=== PATIENT | male | born 1975 | race Caucasian/White ===

== ENCOUNTER 2019-12-22 15:29 | Inpatient (IN) | payer BC ==
[~2019-12-22] VITALS: Ht 188 cm; Wt 98.0 kg
[2019-12-22] MEDS ORDERED: ACETAMINOPHEN325 MG PO (18:29)
[2019-12-22] MEDS ORDERED: LOVENOX60 MG/0.6 SC (18:31)
[2019-12-22] MEDS ORDERED: LIDODERM 5 %1 PATCH TRANSDERM (18:32)
[2019-12-22] MEDS ORDERED: NEURONTIN600 MG PO (18:32)
[2019-12-22] MEDS ORDERED: MELATONIN 3 MG1 TAB PO (18:33)
[2019-12-22] MEDS ORDERED: METHOCARBAMOL500 MG PO (18:35)
[2019-12-22] MEDS ORDERED: CELEXA10 MG PO (18:37)
[2019-12-22] MEDS ORDERED: OXYCODONE HCL5 M1 PO (18:37)
[2019-12-22] MEDS ORDERED: LAMICTAL100 MG PO (18:38)
[2019-12-22 18:51] VITALS: BP 138/88; BMI 27.8
[2019-12-22 21:10] VITALS: BP 138/88
--- NOTE | 2019-12-22 21:50 | NUR ---
PRN PAIN MEDICATION GIVEN FOR 9/10 PAIN LEVEL. PT TOLERATED WELL. WILL CONTINUE TO MONITOR
--- NOTE | 2019-12-22 22:00 | NUR ---
REMOVED RIGHT HIP DRESSING, BLOOD SATURATED. CLEANSED SURGICAL SITE WITH WOUND CLEANSER, PATTED DRY WITH 4X4. COVERED WITH MEPILEX AG DRESSING AT TOP AND SMALL BORDER GAUZE DRESSING AT BOTTOM. COVERED DRAIN SITE WITH BORDER GAUZE DRESSING. DATE, TIME, AND INITALED. PT TOLERATED WELL.
--- NOTE | 2019-12-23 01:11 | NUR ---
I have reviewed this patient and I concur with the Shift Assessment completed by the Licensed Practical Nurse today this shift.
--- NOTE | 2019-12-23 02:36 | NUR ---
PT RESTING IN BED QUIETLY WITH EYES CLOSED EASILY AWAKEN WITH VOICE STIMULATION. PT HAS FAMILY AT BEDSIDE. NO SIGNS OF DISTRESS NOTED. RESPIRATIONS EVEN AND UNLABORED. CALL LIGHT AND OTHER PERSONAL ITEMS WITH IN REACH. WILL CONTINUE TO MONITOR
[2019-12-23 08:00] VITALS: BP 143/90
--- NOTE | 2019-12-23 08:00 | NUR ---
AWAKE AND ALERT RESTING IN BED, DENIES ANY NEEDS AT THIS TIME, C/L AND FLUIDS IN REACH.
--- NOTE | 2019-12-23 09:30 | NUR ---
ASSESSMENT COMPLETE, DENIES ANY NEEDS AT THIS TIME, C/L AND FLUIDS IN REACH.
--- NOTE | 2019-12-23 12:32 | NUR ---
RESTING IN BED, IN ROOM, DENIES ANY NEEDS AT THIS TIME, C/L AND FLUIDS IN REACH.
[2019-12-23 13:55] VITALS: Ht 188 cm; Wt 98.0 kg
--- NOTE | 2019-12-23 16:00 | NUR ---
RESTING IN BED WATCHING TV, AWAKE AND ORIENTED, DENIES ANY NEEDS AT THIS TIME, C/L AND FLUIDS IN REACH.
[2019-12-23 20:01] VITALS: BP 123/65
--- NOTE | 2019-12-23 20:15 | NUR ---
PT LYING IN BED AWAKE ALERT AND ORIENTED x4. NO SIGNS OF DISTRESS NOTED. RESPIRATIONS EVEN AND UNLABORED. DRESSING CHANGED TO RIGHT HIP. IS AT BED SIDE. PT COMPLAINS OF PAIN. EFE ADMINISTER PRN PAIN MEDICATION. CALL LIGHT AND OTHER PERSONAL ITEMS WITH IN REACH. PT ENCOURAGED TO CALL FOR HELP WHEN NEEDED. SIDERAILS x2. WILL CONTINUE TO MONITOR
--- NOTE | 2019-12-24 00:14 | NUR ---
I have reviewed this patient and I concur with the Shift Assessment completed by the Licensed Practical Nurse today this shift.
--- NOTE | 2019-12-24 03:22 | NUR ---
RESTING IN BED QUIETLY. NO SIGNS OF DISTRESS AT THIS TIME. PT HAS NO COMPLAINTS AT THIS TIME. CALL LIGHT AND OTHER PERSONAL ITEMS WITHIN REACH WILLCONTINUE TO MONITOR. BED ALARM ON ACTIVE
[2019-12-24 05:42] LABS: BASOPHILS 0.2 % (0-2); HEMATOCRIT 22.4 % (42.0-54.0); IMMATURE GRANULOCYTES 1.2 % (0-5); LYMPHOCYTES 15.8 % (15-50); MCH 29.6 pg (26.0-34.0); MCHC 32.1 g/dL (31.0-37.0); MCV 92.2 fL (80.0-100.0); MEAN PLATELET VOLUME 9.2 fL (7.4-10.4); NEUTROPHILS 70.8 % (40-80); PLATELET COUNT 317 10x3/uL (130-400); RBC 2.43 10x6/uL (4.20-6.10); RDW 16.1 % (11.5-14.5); WBC 9.7 10x3/uL (4.8-10.8)
[2019-12-24 05:44] LABS: HEMOGLOBIN 7.2 g/dL (13.5-17.5)
--- NOTE | 2019-12-24 05:45 | NUR ---
CECILE FROM LAB CALLED CRITICAL HGB 7.2, RESULTS READ BACK AND VERIFIED
[2019-12-24 05:59] LABS: CALC OSMOLALITY 270 mosm/kg (275-300); CALCIUM 7.9 mg/dL (8.5-10.1); CARBON DIOXIDE 24.8 mmol/L (21.0-32.0); CHLORIDE - SERUM 103 mmol/L (98-107); CREATININE - SERUM 0.7 mg/dL (0.6-1.3); GLUCOSE 93 mg/dL (74-106); POTASSIUM - SERUM 3.8 mmol/L (3.5-5.1); SODIUM 135 mmol/L (136-145); UREA NITROGEN 16 mg/dL (7-18); eGFR NON AFRICAN AMERICAN > 90 mL/min (90-120)
[2019-12-24 07:49] VITALS: BP 133/82
--- NOTE | 2019-12-24 08:45 | NUR ---
AWAKE AND ALERT LYING IN BED WATCHING TV, ASSESSMENT COMPLETE, DENIES ANY NEEDS AT THIS TIME, C/L AND FLUIDS IN REACH, IN ROOM.
--- NOTE | 2019-12-24 12:15 | NUR ---
PATIENT IN THERAPY, DENIES ANY NEEDS AT THIS TIME.
--- NOTE | 2019-12-24 13:42 | NUR ---
BLOOD INFUSION BEGAN AT 1323 VIA IV RT. WRIST, NO S/S OF DISTRESS, STAYED WITH PATIENT 15 MINUTES 1338, MONITORED VITAL SIGNS ALL WNL. IN ROOM WITH PT. C/L AND FLUIDS IN REACH. WILL CONTINUE TO MONITOR.
--- NOTE | 2019-12-24 15:27 | NUR ---
PATIENT ADMITTED TO REHAB FROM [facility]. PATIENT IS NEW TO UNIT AND WILL BE RA AT NEXT MEETING. DISCHARGE PLANS ARE UNCERTAIN AT THIS TIME. WILL CONTINUE TO FOLLOW WITH PATIENT.
--- NOTE | 2019-12-24 16:18 | NUR ---
AWAKE AND ALERT IN BED WATCHING TV WITH , DENIES ANY NEEDS AT THIS TIME, 2ND UNIT OF BLOOD TRANSFUSION BEING ADMINISTERED, NO S/S OF DISTRESS NOTED, C/L AND FLUIDS IN REACH.
--- NOTE | 2019-12-24 19:27 | NUR ---
AWAKE AND ALERT. RESTING IN BED. RESPIRATIONS UNLABORED. BRACE IN PLACE TO LEFT LOWER ARM. RIGHT WIRST SALINE LOCK INTACT. JUST FINISHED 2 UNITS OF PRBC AND TOLERATED WELL WITH NO SIGNS OF ADVERSE REACTION. CASTS IN PLACE TO BILATER LOWER EXTREMITIES. TOES BRUISED BUT WARM TO TOUCH AND CAN WIGGLE ON COMMAND. CAN ALSO MOVE LEFT THUMB ON COMMAND AND IT IS WAS WARM TO TOUCH. RIGHT HIP DRESSING IS INTACT BUT WITH NOTED DRAINAGE. I INFORMED PATIENT THAT I WOULD CHANGE DRESSING LATER TONIGHT. HE VOICED UNDERSTANDING. AT BEDSIDE.
[2019-12-24 20:00] VITALS: BP 134/83
--- NOTE | 2019-12-25 01:36 | NUR ---
SLEEPING WITH RESPIRATIONS UNLABORED. NO DISTRESS NOTED. CALL LIGHT IN REACH.
--- NOTE | 2019-12-25 02:59 | NUR ---
CONTINUES RESTING IN BED WITH EYES CLOSED AND RESPIRATIONS UNLABORED. NO DISTRESS NOTED.
--- NOTE | 2019-12-25 05:59 | NUR ---
QUIET HOURS. NO ACUTE CHANGES IN CONDITION THIS SHIFT. STATES HE SLEPT SOME. NO ACUTE DISTRESS NOTED.
--- NOTE | 2019-12-25 07:30 | NUR ---
SUPINE POSITION WITH EYES CLOSED. RESP EVEN AND UNLABORED WITH NO DISTRESS NOTED. SIDRAILS UP X 2, CALL LIGHT IN REACH AND BED IN LOW, LOCKED POSITION. NO APPARENT NEEDS AT PRESENT TIME.
[2019-12-25 09:46] LABS: BASOPHILS 0.2 % (0-2); EOSINOPHILS 0.8 % (0-7); LYMPHOCYTES 11.8 % (15-50); MCH 29.6 pg (26.0-34.0); MCHC 31.9 g/dL (31.0-37.0); MCV 92.7 fL (80.0-100.0); MEAN PLATELET VOLUME 9.1 fL (7.4-10.4); MONOCYTES 10.6 % (2-11); NEUTROPHILS 75.6 % (40-80); RDW 16.3 % (11.5-14.5); WBC 8.8 10x3/uL (4.8-10.8)
[2019-12-25 09:51] LABS: HEMATOCRIT 30.7 % (42.0-54.0); HEMOGLOBIN 9.8 g/dL (13.5-17.5); PLATELET COUNT 436 10x3/uL (130-400); RBC 3.31 10x6/uL (4.20-6.10)
--- NOTE | 2019-12-25 14:35 | NUR ---
I have reviewed this patient and I concur with the Shift Assessment completed by the Licensed Practical Nurse today this shift.
--- NOTE | 2019-12-25 19:35 | NUR ---
LYING IN BED WATCHING TV AND TALKING TO . ALERT AND ORIENTED X4. REPORTS PAIN IN FEET 2 ON PAIN SCALE. JUST RECEIVED OXYCODONE PRIOR TO SHIFT CHANGE. SOFT CASTS NOTED TO BLE. TOES WARM AND ABLE TO WIGGLE THEM. LT THUMB IN HOMEMADE SPLINT. REPORTS REG SPLINT CAUSES MORE PAIN. BRUISING NOTED TO LISA MIX. DRSG TO RT HIP IS C/D/I. ABRASIONS NOTED TO LT FOREARM. EGGCRATE NOTED UNDER BLE. SALINE LOCK NOTED TO RT WRIST. ENCOURAGED USE OF I.S. USES URINAL. BED ALARM ON FOR PT SAFETY. SR ELEVATED X2. CL IN REACH.
[2019-12-25 20:09] VITALS: BP 123/76
--- NOTE | 2019-12-25 22:14 | NUR ---
MEDICATED WITH OXYCODONE FOR C/O PAIN IN FEET. OFFERED BATH AND STATES HE WANTS TO WAIT UNTIL 0900 WHEN RETURNS. CL IN REACH.
--- NOTE | 2019-12-26 01:01 | NUR ---
RESTING QUIETLY WITH EYES CLOSED. RESP NONLABORED. NO DISTRESS. CL IN REACH. BED ALARM ON.
--- NOTE | 2019-12-26 02:57 | NUR ---
RESTING WITH EYES CLOSED. RESP EVEN AND NONLABORED. NO DISTRESS. CL IN REACH. BED ALARM ON.
--- NOTE | 2019-12-26 05:52 | NUR ---
HAS RESTED WELL TONIGHT. LYING IN BED WITH EYES CLOSED. RESP SHALLOW, NONLABORED. NO DISTRESS. CL IN REACH. BED ALARM ON.
--- NOTE | 2019-12-26 07:32 | NUR ---
A/A/OX4. REMOVED FROM BEDPAN HAD MOD AMT LIGHT BROWN LIQUID STOOL. STATES PAIN LEVEL IS AT 4 BUT DOES NOT WANT PAIN PILL YET. SIDERAILS UP X 2, CALL LIGHT IN REACH AND BED IN LOW LOCKED POSITION. DRESSING TO RIGHT HIP C/D/I.
[2019-12-26 08:15] VITALS: BP 135/79
--- NOTE | 2019-12-26 14:51 | NUR ---
RESTING QUIETLY IN BED WATCHING TV. DENIES ANY NEED FOR PAIN MED AT PRESENT TIME. NO REQUESTS VOICED
--- NOTE | 2019-12-26 15:00 | NUR ---
I have reviewed this patient and I concur with the Shift Assessment completed by the Licensed Practical Nurse today this shift.
--- NOTE | 2019-12-26 19:45 | NUR ---
LYING IN BED TALKING TO . ALERT AND ORIENTED X4. RESP EVEN AND NONLABORED. ENCOURAGED USE OF I.S. AND HE VERBALIZED UNDERSTANDING. DRSG NOTED TO RT HIP IS C/D/I. SOFT CASTS NOTED TO BLE. BILAT TOES ARE BRUISED. HAS BLOOD BLISTER ON TOP OF LT FOOT THAT DAY SHIFT NURSE REPORTED THAT HAD BEEN DRAINING. TOES ARE WARM TO TOUGH AND HE IS ABLE TO WIGGLE THEM. EDEMA NOTED TO BLE. ABRASIONS NOTED TO LT FOREARM. NOT WEARING BRACE ON LT HAND BUT HAS SPLINT ON LT THUMB. RATES PAIN IN LT FOOT 4. SALINE LOCK NOTED TO RT WRIST. NO DISTRESS. AT BEDSIDE. CL IN REACH. BED ALARM IN USE FOR PT SAFETY.
[2019-12-26 20:10] VITALS: BP 132/89
--- NOTE | 2019-12-26 22:06 | NUR ---
MEDICATED WITH OXYCODONE FOR C/O PAIN IN LT FOOT. CL IN REACH. AT BEDSIDE. BED ALARM IN USE.
--- NOTE | 2019-12-27 01:25 | NUR ---
RESTING QUIETLY WITH EYES CLOSED. RESP NONLABORED. NO DISTRESS. CL IN REACH. BED ALARM ON.
--- NOTE | 2019-12-27 04:11 | NUR ---
LYING IN BED USING CELL PHONE. DENIES NEEDS. URINAL EMPTIED. NO DISTRESS. CL IN REACH.
--- NOTE | 2019-12-27 05:33 | NUR ---
MEDICATED WITH OXYCODONE FOR C/O PAIN IN LT FOOT. CL IN REACH. NO DISTRESS.
[2019-12-27 07:20] LABS: BASOPHILS 0.3 % (0-2); EOSINOPHILS 1.5 % (0-7); HEMATOCRIT 29.8 % (42.0-54.0); HEMOGLOBIN 9.4 g/dL (13.5-17.5); IMMATURE GRANULOCYTES 0.9 % (0-5); LYMPHOCYTES 17.7 % (15-50); MCH 29.2 pg (26.0-34.0); MCHC 31.5 g/dL (31.0-37.0); MCV 92.5 fL (80.0-100.0); MEAN PLATELET VOLUME 8.6 fL (7.4-10.4); NEUTROPHILS 68.6 % (40-80); RBC 3.22 10x6/uL (4.20-6.10); RDW 15.9 % (11.5-14.5); WBC 7.4 10x3/uL (4.8-10.8)
[2019-12-27 07:21] LABS: PLATELET COUNT 612 10x3/uL (130-400)
[2019-12-27 07:37] LABS: CALC OSMOLALITY 272 mosm/kg (275-300); CALCIUM 8.5 mg/dL (8.5-10.1); CARBON DIOXIDE 25.8 mmol/L (21.0-32.0); CHLORIDE - SERUM 104 mmol/L (98-107); CREATININE - SERUM 0.6 mg/dL (0.6-1.3); GLUCOSE 87 mg/dL (74-106); POTASSIUM - SERUM 4.6 mmol/L (3.5-5.1); SODIUM 137 mmol/L (136-145); UREA NITROGEN 12 mg/dL (7-18); eGFR NON AFRICAN AMERICAN > 90 mL/min (90-120)
[2019-12-27 07:38] VITALS: BP 131/87
--- NOTE | 2019-12-27 08:30 | NUR ---
SITTING UP IN BED WATCHING TV, WITH AT BEDSIDE, V/S AND ASSESSMENT COMPLETE, DENIES ANY NEEDS AT THIS TIME, C/L AND FLUIDS IN REACH.
--- NOTE | 2019-12-27 12:03 | NUR ---
UP IN W/C, DENIES ANY NEEDS AT THIS TIME, C/L AND FLUIDS IN REACH.
--- NOTE | 2019-12-27 15:24 | NUR ---
Nutrition Follow-up: Diet: Regular PO intake: ~79% average x last 12 meals; reports that his appetite is better. States that he is still having diarrhea. Last BM: 12/26/19 x 2. WT: 216# (12/23/19) Meds and labs reviewed. Recommend continue current diet. RD following.
--- NOTE | 2019-12-27 16:00 | NUR ---
UP IN W/C ASSISTED TO SHOWER, WITH PATIENT HELPING WITH SHOWER, ASSISTED BACK INTO BED AFTER SHOWER, DENIES ANY OTHER NEEDS AT THIS TIME, C/L AND FLUIDS IN REACH.
--- NOTE | 2019-12-27 19:30 | NUR ---
ASSESSMENT PER FLOW SHEET, VS OBTAINED PER EMT/DISPATCHER, PT REPORTS FLATUS, NO BM TODAY, AND USING URINAL WITH NO DIFFICULTY, PADMINI SOFT CAST INTACT, DOES NOT HAVE LEFT HAND/FA SPLINT ON AT THIS TIME, STATES "I ONLY WEAR IT IF I'M GETTING UP", PT ABLE TO MOVE LEFT HAND WITH NO DIFFICULTY, WIGGLES TOES, BLOOD BLISTER NOTED ON TOP OF LEFT FOOT, WILL INFORM DAYSHIFT TO FOLLOW UP WITH DR ROBISON REGARDING LEFT FOOT, PT REQUESTED AND SERVED FRESH H20, DENIES FURTHER NEEDS
--- NOTE | 2019-12-27 20:38 | NUR ---
PT WATCHING TV, DENIES NEEDS AT THIS TIME
[2019-12-27 21:45] VITALS: BP 133/80
--- NOTE | 2019-12-27 21:50 | NUR ---
INFORMED PT THAT I WILL BE IN SHORTLY TO ADM MEDS, PT VERBALIZES UNDERSTANDING
--- NOTE | 2019-12-27 22:16 | NUR ---
NANDO VIDEO JOURNALIST NURSE TO ROOM FOR ADM OF 2100 MEDS
--- NOTE | 2019-12-28 00:27 | NUR ---
PT RESTING WITH EYES CLOSED, RESP QUIET, NO DISTRESS NOTED, LEFT UNDISTURBED AT THIS TIME, BED IN LOW POSITION, SIDE RAILS X 2, CALL LIGHT IN REACH, BED ALARM ON AND WORKING PROPERLY
--- NOTE | 2019-12-28 04:46 | NUR ---
PT RESTING WITH EYES CLOSED, RESP QUIET, NO DISTRESS NOTED, LEFT UNDISTURBED AT THIS TIME, BED IN LOW POSITION, SIDE RAILS X 2, CALL LIGHT IN REACH, EMPTIED URINAL
--- NOTE | 2019-12-28 06:03 | NUR ---
PT AWAKE, REQUESTED AND SERVED FRESH H20, REQUESTS PAIN MED BEFORE THERAPY, DENIES FURTHER NEEDS, BED IN LOW POSITION, SIDE RAILS X 2, CALL LIGHT IN REACH
[2019-12-28 07:30] VITALS: BP 121/74
--- NOTE | 2019-12-28 07:30 | NUR ---
ASSESSMENT COMPLETED,VS TAKEN.DRESSING OFF LEFT FOOT,MULTIPLE BLD BLISTERS NOTED.SOFT CAST WITH NOAH WRAP INTACT TO RT FOOT AND LOWER LEG.EDEMA PRESENT TO BILAT FEET.CL IN EASY REACH,BED IN LOW POSITION.WILL CONTINUE WITH CURRENT PLAN OF CARE.
--- NOTE | 2019-12-28 08:20 | NUR ---
FAMILY CONCERNED BECAUSE ANITHA OR DID NOT ROUND YESTERDAY. CALLED OFFICE AND LEFT MESSAGE WITH SAPNA TO ASK ANITHA GERMAN TO ROUND ON PT TODAY. SAPNA STATED MONSERRAT WAS ALREADY AT HOSPITAL ROUNDING AND SHE WOULD LET HER KNOW THE INFORMATION.
--- NOTE | 2019-12-28 11:19 | NUR ---
LEFT DORSAL FOOT WITH LARGE FLUID FILLED BLISTER, LATERAL SIDE OF FOOT AND LATERAL LEFT ANKLE ALSO HAVE FLUID FILLED BLISTERS. PT STATES HE IS UNSURE HOW LONG BLISTERS HAVE BEEN THERE SINCE THE FOOT/LEG HAVE BEEN IN A CAST. PT STATES CAST WAS REMOVED TODAY. THERE IS A CAST ON RIGHT LEG/FOOT AT THIS TIME. WOUND CARE RECOMMENDED COVERING BLISTERS WITH MEPILEX FOAM AND LOOSELY WRAPPING WITH KERLIX TO PROTECT BLISTERS FROM RUPTURING. WOUND CARE WILL CONTINUE MONITORING.
--- NOTE | 2019-12-28 19:50 | NUR ---
ASSESSMENT PER FLOW SHEET, VS OBTAINED PER VETERINARY ASSISTANT TECHNICIAN, PT REPORTS FLATUS, HAVING A LARGE SOLID BM TODAY, AND VOIDING WITH NO DIFFICULTY, PT ENC TO USE I.S., PT STATES HE HAS BEEN USING IT, PT RATES PAIN 2/10, DENIES NEED FOR PAIN MED AT THIS TIME, PT INST TO USE CALL LIGHT WHEN NEEDING IT, PT DENIES NEEDS, SPOUSE AT BEDSIDE
--- NOTE | 2019-12-28 20:50 | NUR ---
PT LYING IN BED VISITING WITH . C/O LEFT ANKLE AND FOOT PAIN 10/21 PAIN MEDCIATION ADMININSTERED. DENIES ANY OTHER NEEDS OR PAIN. CALL LIGHT WITHIN REACH. FALL PRECAUTIONS IN PLACE. CPOC
[2019-12-28 21:55] VITALS: BP 120/82
--- NOTE | 2019-12-28 23:22 | NUR ---
PT LYING IN BED SUPINE EYES CLOSED RESTING QUIETLY. BLE ELEVATED. RR EVEN AND UNLABORED. CALL LIGHT WITHIN REACH. FALL PRECAUTIONS IN PLACE. WILL CONTINUE TO MONITOR
--- NOTE | 2019-12-29 01:17 | NUR ---
PT LYING IN BED EYES CLOSED RESTING. RR EVEN AND UNLABORED. CALL LIGHT WITHIN REACH. FALL PRECAUTIONS IN PLACE. CPOC
--- NOTE | 2019-12-29 04:48 | NUR ---
PT LYING IN BED SUPINE EYES CLOSED RESTING. RR EVEN AND UNLABORED. CALL LIGHT WITHIN REACH. FALL PRECAUTIONS IN PLACE. CPOC
[2019-12-29 07:26] LABS: BASOPHILS 0.3 % (0-2); EOSINOPHILS 2.5 % (0-7); HEMATOCRIT 30.6 % (42.0-54.0); HEMOGLOBIN 9.5 g/dL (13.5-17.5); IMMATURE GRANULOCYTES 0.5 % (0-5); LYMPHOCYTES 18.7 % (15-50); MCV 93.3 fL (80.0-100.0); MEAN PLATELET VOLUME 8.2 fL (7.4-10.4); MONOCYTES 11.5 % (2-11); NEUTROPHILS 66.5 % (40-80); PLATELET COUNT 694 10x3/uL (130-400); RBC 3.28 10x6/uL (4.20-6.10); RDW 15.5 % (11.5-14.5); WBC 6.1 10x3/uL (4.8-10.8)
[2019-12-29 07:34] LABS: CALC OSMOLALITY 274 mosm/kg (275-300); CALCIUM 8.2 mg/dL (8.5-10.1); CARBON DIOXIDE 26.1 mmol/L (21.0-32.0); CHLORIDE - SERUM 105 mmol/L (98-107); CREATININE - SERUM 0.8 mg/dL (0.6-1.3); GLUCOSE 82 mg/dL (74-106); POTASSIUM - SERUM 4.1 mmol/L (3.5-5.1); SODIUM 138 mmol/L (136-145); UREA NITROGEN 13 mg/dL (7-18); eGFR NON AFRICAN AMERICAN > 90 mL/min (90-120)
[2019-12-29 08:42] VITALS: BP 122/80
--- NOTE | 2019-12-29 09:49 | NUR ---
LAYING IN BED TALKING ON PHONE WITH . DENIES INCREASED PAIN OR NEEDS AT PRESENT.
--- NOTE | 2019-12-29 12:56 | NUR ---
SITTING UP IN ROOM TALKING TO IN ROOM, LAYING IN BED. NO S/S NEEDS.
--- NOTE | 2019-12-29 13:05 | NUR ---
Nutrition Follow-up: Diet: Regular PO intake: 75-100% x all meals; reports good appetite and denies needs. Last BM: 12/26/19. WT: 216# (12/23/19) Meds and labs reviewed. Skin: blister on foot Recommend continue current diet. RD following.
--- NOTE | 2019-12-29 14:01 | NUR ---
CLINICAL UPDATES FAXED TO [facility] AT HIS INSURANCE, AUTH. # [id number] WITH A TENATIVE DISCHARGE DATE OF 01/08/20. WILL CONTINUE TO FOLLOW WITH PATIENT.
--- NOTE | 2019-12-29 16:19 | NUR ---
CARE TEAM MEETING: PATIENT PROGRESSING WELL IN THERAPY. DISCHARGE PLANS ARE FOR PATIEN TO RETURN HOME. HIS TENATIVE DISCHARGE DATE IS 01/08/20. WILL CONTINUE TO FOLLOW WITH PATIENT.
--- NOTE | 2019-12-29 20:10 | NUR ---
AWAKE AND ALERT. RESTING IN BED WITH RESPIRATIONS UNLABORED. DOES NOT HAVE SPLINT ON LEFT ARM. HE TAKES IT ON AND OFF HIMSELF. CAST INTACT TO RIGHT LEG, DRESSING INTACT TO LEFT LEG. NO ACUTE DISTRESS NOTED. CALL LIGHT IN REACH.
[2019-12-29 21:16] VITALS: BP 144/61
--- NOTE | 2019-12-30 00:34 | NUR ---
RESTING IN BED WITH RESPIRATIONS UNLABORED.
--- NOTE | 2019-12-30 03:10 | NUR ---
RESTING IN BED WITH RESPIRAITONS UNLABORED. NO DISTRESS NOTED. CALL LIGHT IN REACH.
--- NOTE | 2019-12-30 05:05 | NUR ---
QUIET HOURS. NO ACUTE CHANGES IN CONDITION THIS SHIFT. RESTING IN BED WITH NO DISTRESS NOTED.
--- NOTE | 2019-12-30 07:13 | NUR ---
A/A/OX4. RESTING QUIETLY IN BED WATCHING TV. DEMIES ANY PAIN OR DISCOMFORT AND NO REQUESTS VOICED. SIDERAILS UP X 2, CALL LIGHT IN REACH AND BED IN LOW LOCKED POSITION.
[2019-12-30 07:37] VITALS: BP 120/80
--- NOTE | 2019-12-30 16:00 | NUR ---
I have reviewed this patient and I concur with the Shift Assessment completed by the Licensed Practical Nurse today this shift.
[2019-12-30 20:18] VITALS: BP 126/87
--- NOTE | 2019-12-30 21:15 | NUR ---
REPORT RECEIVED. PT FAMILY IN ROOM AT THIS TIME. ASSESSMENT COMPLETED, SEE FLOWSHEET. PM MEDS GIVEN WITHOUT DIFFICULTY. WILL CONTINUE TO MONITOR.
--- NOTE | 2019-12-30 23:00 | NUR ---
PT RESTING IN BED, NO ACUTE DISTRESS NOTED. WILL CONTINUE TO MONITOR.
--- NOTE | 2019-12-31 01:00 | NUR ---
PT RESTING QUIETLY IN BED, NO ACUTE DISTRESS NOTED.
--- NOTE | 2019-12-31 03:00 | NUR ---
PT RESTING IN BED AT THIS TIME. WILL CONTINUE TO MONITOR.
[2019-12-31 07:05] LABS: BASOPHILS 0.5 % (0-2); EOSINOPHILS 2.6 % (0-7); HEMATOCRIT 33.2 % (42.0-54.0); HEMOGLOBIN 10.2 g/dL (13.5-17.5); IMMATURE GRANULOCYTES 0.5 % (0-5); LYMPHOCYTES 23.2 % (15-50); MCH 28.8 pg (26.0-34.0); MCHC 30.7 g/dL (31.0-37.0); MCV 93.8 fL (80.0-100.0); MEAN PLATELET VOLUME 8.3 fL (7.4-10.4); MONOCYTES 9.6 % (2-11); NEUTROPHILS 63.6 % (40-80); PLATELET COUNT 757 10x3/uL (130-400); RBC 3.54 10x6/uL (4.20-6.10); RDW 15.3 % (11.5-14.5); WBC 6.1 10x3/uL (4.8-10.8)
[2019-12-31 07:24] LABS: CALC OSMOLALITY 275 mosm/kg (275-300); CALCIUM 8.7 mg/dL (8.5-10.1); CHLORIDE - SERUM 105 mmol/L (98-107); CREATININE - SERUM 0.9 mg/dL (0.6-1.3); GLUCOSE 83 mg/dL (74-106); POTASSIUM - SERUM 4.8 mmol/L (3.5-5.1); SODIUM 138 mmol/L (136-145); UREA NITROGEN 15 mg/dL (7-18); eGFR NON AFRICAN AMERICAN > 90 mL/min (90-120)
--- NOTE | 2019-12-31 07:32 | NUR ---
LAYING SUPINE IN BED, RATES PAIN AT 2 AND STATES NO NEED FOR PAIN MED. NO REQUESTS VOICED. SIDERAILS UP X 2, CALL LIGHT IN REACH AND BED IN LOW, LOCKED POSITION. WILL CONTINUE POC.
[2019-12-31 07:39] VITALS: BP 138/87
--- NOTE | 2019-12-31 19:10 | NUR ---
PT IS RESTING IN BED AWAKE VISITING WITH FAMILY IN ROOM. HE IS A&OX4, VOICES HIS PAIN IS NOW 2/10 ON NUMERIC SCALE SINCE HE WAS GIVEN TYLENOL. NO OTHER COMPLAINTS AT THIS TIME. PERFOERMED FULL ASSESSMENT AND WILL DOC IN FLOW SHEET. HE ALSO USED INCENTIVE SPIROMITOR AND PULLED 2500X3. WILL CONTINUE TO MONITOR. BED IS LOW,SIDE RAISLX2,CALL LGT WITHIN REACH.
--- NOTE | 2019-12-31 20:50 | NUR ---
PT IS LAYING IN BED WATCHING TV. VOICES"IM DOING JUST FINE". JUST ADMINNISTERED SCHEDULED MEDS. FRESH WATER WAS PROVIDED. BED WAS LEFT LOW,SIDE RAISLX2,CALL MORGAN LOPEZ. WILL CONINTUE TO MONITOR
[2019-12-31 22:05] VITALS: BP 138/82
--- NOTE | 2019-12-31 22:46 | NUR ---
PT IS RESTING I BED WITH EYES CLOSED. AWAKES EASILY. PAIN IS "0/10" ON NUMERIC SCALE. NO NEED OR CONCERNS VOICED. BED IS LOW,SIDE RAILSX2,CALL [facility] REACH. WILL CONTINUE TO MONTIOR
--- NOTE | 2020-01-01 01:14 | NUR ---
PT IS RESTING IN BED WITH EYES CLOSED. AWAKES EASILY AND VOICES NO NEEDS OR COMPLAINTS AT THIS TIME. BED IS LEFT LOW,SIDE RASILX2,CALL LIGHT WITHIN REACH. WILL CONINTUE TO MONITOR
--- NOTE | 2020-01-01 03:01 | NUR ---
PT IS RESTING IN BED WITH EYES CLOSED. RR ARE EQUAL AND UNLBAORED. SKIN IS PINK AND WARM. BED IS LOW,SIDE RAISX2,CALL LGIHT WITHIN REACH. WILL CONITNUE TO MONITOR
--- NOTE | 2020-01-01 05:04 | NUR ---
PT IS RESTING IN BED WITH EYES CLOSED. AWAKENS EASILY. VOICES NO NEEDS OR CONCERNS AT THIS TIME. BED IS LEFT LOW,SIDE RAISLX2,CALL LIGHT WITHIN REACH. WILL CONITNUE TO MONITOR
--- NOTE | 2020-01-01 06:28 | NUR ---
PT IS RESTING IN BED WATCHING TV. WHEN ASKED IF IN ANY PAIN HE VOICES"NO, IM DOING OK RIGHT NOW". NO NEEDS OR COMPLAINTS VOICED. BED IS LEFT LOW,SIDE RAISLX2,CALL LIGHT WITHIN REACH. WILL CONITNUE TO BURAK
--- NOTE | 2020-01-01 08:00 | NUR ---
AWAKE AND ALERT SITTING UP IN BED, V/S AND ASSESSMENT COMPLETE, DENIES ANY NEEDS AT THIS TIME, C/L AND FLUIDS IN REACH.
--- NOTE | 2020-01-01 11:55 | NUR ---
RESTING IN BED WITH EYES CLOSED, FAMILY AT BEDSIDE, RESP EVEN AND UNLABORED, NO S/S OF DISTRESS NOTED, C/L AND FLUIDS IN REACH.
[2020-01-01 12:07] VITALS: BP 139/84
--- NOTE | 2020-01-01 16:04 | NUR ---
RESTING IN BED WATCHING TV AND VISITING WITH FAMILY, DENIES ANY NEEDS AT THIS TIME, C/L AND FLUIDS IN REACH.
--- NOTE | 2020-01-01 19:05 | NUR ---
BEDSIDE REPORT COMPLETE. PT LYING IN BED VISITING WITH FAMILY. ALERT AND ORIENTED X4. DENIES ANY NEEDS OR PAIN. LEFT FOOT DRESSING INTACT. RIGHT HIP DRESSING INTACT. CALL LIGHT WITHIN REACH. FALL PRECAUTIONS IN PLACE. CPOC
[2020-01-01 20:58] VITALS: BP 127/82
--- NOTE | 2020-01-01 23:44 | NUR ---
PT LYING IN BED EYES CLOSED RESTING QUIETLY. RR EVEN AND UNLABORED. CALL LIGHT WITHIN REACH. FALL PRECAUTIONS IN PLACE. WILL CONTINUE TO MONITOR
--- NOTE | 2020-01-02 01:25 | NUR ---
PT LYING IN BED SUPINE EYES CLOSED RESTING QUIETLY. RR EVEN AND UNLABORED. CALL LIGHT WITHIN REACH. FALL PRECAUTIONS IN PLACE. CPOC
--- NOTE | 2020-01-02 04:27 | NUR ---
PT LYING IN BED EYES CLOSED RESTING QUIETLY. RR EVEN AND UNLABORED. CALL LIGHT WITHIN REACH. FALL PRECAUTIONS IN PLACE. CPOC
--- NOTE | 2020-01-02 06:54 | NUR ---
PT LYING IN BED WATCHING TV. DENIES ANY NEEDS OR PAIN. NO SIGNS OF ACUTE DISTRESS NOTED. CALL LIGHT WITHIN REACH. FALL PRECAUTIONS IN PLACE. CPOC
[2020-01-02 10:09] VITALS: BP 134/82
--- NOTE | 2020-01-02 13:32 | NUR ---
PT EATING LUNCH. DENIES PAIN AT PRESENT.
--- NOTE | 2020-01-02 16:59 | NUR ---
DSNG CHANGED TO RT HIP AND L FOOT. NO S&S OF INFECTION. BRITTANI TO HIP WITH REDNESS AT BRITTANI. NO SURROUNDING REDNESS,NO DRAINAGE.
--- NOTE | 2020-01-02 17:04 | NUR ---
PT UP IN W/C. HERE.
--- NOTE | 2020-01-02 19:15 | NUR ---
BEDSIDE REPORT COMPLETE. PT LYING IN BED SUPINE VISITING WITH . ALERT AND ORIENTED X4. REQUESTS PAIN MEDICATION WITH HS MEDS FOR 4/10 NUMBNESS, TINGLING, ACHING BILATERAL FEET PAIN. NO OTHER CONCERNS VOICED. LEFT FOOT AND RIGHT HIP DRESSING INTACT. CALL LIGHT WITHIN REACH. FALL PRECAUTIONS IN PLACE. CPOC
[2020-01-02 21:04] VITALS: BP 138/89
--- NOTE | 2020-01-03 00:01 | NUR ---
PT LYING IN BED EYES CLOSED RESTING QUIETLY. RR EVEN AND UNLABORED. CALL LIGHT WITHIN REACH. FALL PRECAUTIONS IN PLACE. CPOC
--- NOTE | 2020-01-03 02:31 | NUR ---
PT LYING IN BED EYES CLOSED RESTING QUIETLY. RR EVEN AND UNLABORED. CALL LIGHT WITHIN REACH. FALL PRECAUTIONS IN PLACE. CPOC
--- NOTE | 2020-01-03 07:20 | NUR ---
RESTING QUIETLY IN BED POSITIONED ON BACK WITH BOTH FEET ELEVATED ON PILLOW. A/A/O4. DENIES ANY PAIN AT THIS TIME AND NO REQUESTS VOICED. SIDERAILS UP X 2, CALL LIGHT AND FLUIDS IN REACH, BED IN LOW LOCKED POSITION.
[2020-01-03 08:00] VITALS: BP 114/80
[2020-01-03 08:13] LABS: CALC OSMOLALITY 276 mosm/kg (275-300); CALCIUM 9.1 mg/dL (8.5-10.1); CARBON DIOXIDE 27.4 mmol/L (21.0-32.0); CHLORIDE - SERUM 105 mmol/L (98-107); CREATININE - SERUM 0.7 mg/dL (0.6-1.3); GLUCOSE 78 mg/dL (74-106); POTASSIUM - SERUM 4.7 mmol/L (3.5-5.1); SODIUM 140 mmol/L (136-145); UREA NITROGEN 11 mg/dL (7-18); eGFR NON AFRICAN AMERICAN > 90 mL/min (90-120)
[2020-01-03 08:27] LABS: HEMATOCRIT 34.8 % (42.0-54.0); LYMPHOCYTES 27.6 % (15-50); MCH 29.3 pg (26.0-34.0); MCHC 31.6 g/dL (31.0-37.0); MCV 92.8 fL (80.0-100.0); MEAN PLATELET VOLUME 7.7 fL (7.4-10.4); NEUTROPHILS 60.3 % (40-80); PLATELET COUNT 829 10x3/uL (130-400); RBC 3.75 10x6/uL (4.20-6.10); RDW 14.9 % (11.5-14.5); WBC 5.9 10x3/uL (4.8-10.8)
--- NOTE | 2020-01-03 10:06 | NUR ---
Nutrition Follow-up: Diet: Regular PO intake: 75-100% x all meals Last BM: 01/02/20. WT: 216# (12/23/19), no new weight Meds and labs reviewed. Recommend continue current diet. RD following.
--- NOTE | 2020-01-03 19:50 | NUR ---
PATIENT RECEIVED SITTING UP IN BED. AT BEDSIDE. ASESSMENT & VITAL SIGNS DONE. DRESSING TO LEFT FOOT INTACT. BED LOW. CALL LIGHT WITHIN REACH. WILL CONTINUE TO MONITOR.
[2020-01-03 21:53] VITALS: BP 119/75
--- NOTE | 2020-01-04 01:54 | NUR ---
PATIENT EYES CLOSED. RESPIRATIONS 18 & EVEN. URINAL EMPTIED OF 200 CC OF CLEAR YELLOW COLOR URINE. BED LOW. CALL LIGHT WITHIN REACH. WILL CONTINUE TO MONITOR.
--- NOTE | 2020-01-04 02:35 | NUR ---
I have reviewed this patient and I concur with the Shift Assessment completed by the Licensed Practical Nurse today this shift.
--- NOTE | 2020-01-04 07:21 | NUR ---
A/A/OX4. RESTING IN SUPINE POSITION WITH FEET ELEVATED ON PILLOWS. MP REQUESTS VOICED AT PRESENT TIME, DENIES ANY NEED FOR PAIN MED WITH PAIN RATED AT 2-3. DRESSING TO LEFT FOOT WITH SMALL AMT DRIED BLOODY DRAINAGE ON UPPER AREA NEXT TO TOE. SIDERAILS UP X 2, CALL LIGHT IN REACH AND BED IN LOW, LOCKED POSITION. WILL CPOC
[2020-01-04 08:00] VITALS: BP 118/80
--- NOTE | 2020-01-04 12:04 | NUR ---
order has been faxed to [facility] for dme needed at home. [facility] to call patient ed case manager, yuriy jj , fax. , order has been faxed, will continue to follow with patient.
--- NOTE | 2020-01-04 13:00 | NUR ---
I have reviewed this patient and I concur with the Shift Assessment completed by the Licensed Practical Nurse today this shift.
--- NOTE | 2020-01-04 17:25 | NUR ---
BRITTANI REMOVED FROM HIP INCISION. PT TOLERATED WELL. AREA CLEANSED WITH BETAADINE AND STERI STRIPS APPLIED.
--- NOTE | 2020-01-04 19:40 | NUR ---
PATIENT RECEIVED SITTING UP IN BED. ASSESSMENT & VITAL SIGNS DONE. IN ROOM. NO C/O PAIN OR DISTRESS. BED LOW. CALL LIGHT WITHIN REACH. WILL CONTINUE TO MONITOR.
[2020-01-04 21:16] VITALS: BP 118/74
--- NOTE | 2020-01-05 02:00 | NUR ---
PATIENT EYES CLOSED. RESPIRATIONS 18 & EVEN. URINAL EMPTIED OF 500 CC 0F YELLOW COLOR URINE. BED LOW. CALL LIGHT WITHIN REACH. WILL CONTINUE TO MONITOR.
--- NOTE | 2020-01-05 02:21 | NUR ---
I have reviewed this patient and I concur with the Shift Assessment completed by the Licensed Practical Nurse today this shift.
--- NOTE | 2020-01-05 04:39 | NUR ---
PATIENT EYES CLOSED. RESPIRATIONS 18 & EVEN. BED LOW. URINAL WITHIN REACH. WILL CONTINUE TO MONITOR.
[2020-01-05 08:00] VITALS: BP 139/88
--- NOTE | 2020-01-05 08:30 | NUR ---
RESTING IN BED, AT BEDSIDE, ASSESSMENT COMPLETE, DENIES ANY NEEDS AT THIS TIME, C/L AND FLUIDS IN REACH.
[2020-01-05 08:54] LABS: CALC OSMOLALITY 278 mosm/kg (275-300); CALCIUM 9.1 mg/dL (8.5-10.1); CARBON DIOXIDE 26.6 mmol/L (21.0-32.0); CHLORIDE - SERUM 106 mmol/L (98-107); CREATININE - SERUM 0.8 mg/dL (0.6-1.3); GLUCOSE 76 mg/dL (74-106); POTASSIUM - SERUM 3.9 mmol/L (3.5-5.1); SODIUM 140 mmol/L (136-145); UREA NITROGEN 14 mg/dL (7-18); eGFR NON AFRICAN AMERICAN > 90 mL/min (90-120)
[2020-01-05 09:04] LABS: BASOPHILS 0.7 % (0-2); EOSINOPHILS 3.4 % (0-7); HEMATOCRIT 36.5 % (42.0-54.0); HEMOGLOBIN 11.2 g/dL (13.5-17.5); IMMATURE GRANULOCYTES 0.2 % (0-5); LYMPHOCYTES 32.4 % (15-50); MCH 28.5 pg (26.0-34.0); MCHC 30.7 g/dL (31.0-37.0); MCV 92.9 fL (80.0-100.0); MEAN PLATELET VOLUME 8.3 fL (7.4-10.4); MONOCYTES 10.1 % (2-11); NEUTROPHILS 53.2 % (40-80); RBC 3.93 10x6/uL (4.20-6.10); RDW 14.8 % (11.5-14.5); WBC 4.1 10x3/uL (4.8-10.8)
[2020-01-05 09:13] LABS: PLATELET COUNT 565 10x3/uL (130-400)
--- NOTE | 2020-01-05 12:10 | NUR ---
AWAKE AND ALERT UP IN W/C, DENIES ANY NEEDS AT THIS TIME, C/L AND FLUIDS IN REACH.
--- NOTE | 2020-01-05 14:24 | NUR ---
BLISTERS ON LEFT FOOT ARE DRYING UP. THERE IS NO ODOR AND ONLY A SMALL AMOUNT OF DRAINAGE (SEROUS). RECOMMENDED USING ADAPTIC OVER THE DRYING BLISTERS TO PROTECT PRIOR TO WRAPPING WITH KERLIX.
--- NOTE | 2020-01-05 16:09 | NUR ---
RESTING IN BED WATCHING TV, DENIES ANY NEEDS AT THIS TIME, C/L AND FLUIDS IN REACH.
--- NOTE | 2020-01-05 16:29 | NUR ---
CARE TEAM MEETING: PATIENT IS DOING WELL IN THERAPY. AT LIST OF DME HAS BEEN FAXED TO [employer] AND TO PATIENT JACE BEYER , FAX [phone]. WILL CONTINUE TO FOLLOW WITH PATIENT. HIS TENATIVE DISCHARGE DATE IS 01/07/20.
--- NOTE | 2020-01-05 19:55 | NUR ---
ASSESSMENT PER FLOW SHEET, VS OBTAINED PER SCALLOP CUTTER, PT REPORTS FLATUS, BM YESTERDAY X 2, AND VOIDING WITH NO DIFFICULTY, INC TO RIGHT HIP WITH STERI STRIPS CDI WITH NO DRAINAGE, DRESSING TO LEFT FOOT INTACT WITH DRIED DRAINAGE NOTED ON TOP, PT RATES HIP/FEET PAIN 2/10, PTS I.S. NOTED TO BE BROKEN, INFORMED PT THAT I WILL GET ANOTHER ON AND BRING TO HIM, PT VERBALIZES UNDERSTANDING, REQUESTED AND SERVED FRESH H20, DENIES FURTHER NEEDS
[2020-01-05 20:59] VITALS: BP 133/80
--- NOTE | 2020-01-05 21:05 | NUR ---
PT AWAKE, WATCHING TV, AT BEDSIDE, ADM 2100 MEDS AND PAIN MED PER MD ORDERS, SEE EMAR, PT INST ON AND DEMONSTRATED I.S. WITH GOOD EFFORT, PT DENIES FURTHER NEEDS, BED IN LOW POSITION, SIDE RAILS X 2, CALL LIGHT IN REACH
--- NOTE | 2020-01-05 22:30 | NUR ---
PT RESTING WITH EYES CLOSED, RESP QUIET, NO DISTRESS NOTED, LEFT UNDISTURBED AT THIS TIME, BED IN LOW POSIITON, SIDE RAILS X 2, CALL LIGHT IN REACH
--- NOTE | 2020-01-06 00:23 | NUR ---
PT RESTING WITH EYES CLOSED, RESP QUIET, NO DISTRESS NOTED, LEFT UNDISTURBED AT THIS TIME, BED IN LOW POSITON, SIDE RAILS X 2, CALL LIGHT IN REACH
--- NOTE | 2020-01-06 02:37 | NUR ---
PT AWAKE, EMPTIED BOTH URINALS, PT DENIES NEEDS OR PAIN AT THIS TIME
--- NOTE | 2020-01-06 06:20 | NUR ---
PT LYING IN BED SUPINE EYES CLOSED EYES CLOSED RESTING QUIETLY. RR EVEN AND UNLABORED. CALL LIGHT AND WATER WITHIN REACH. FALL PRECAUTIONS IN PLACE. CPOC
[2020-01-06] MEDS ORDERED: oxyCODONE IR PO (07:28)
--- NOTE | 2020-01-06 07:30 | NUR ---
RECEIVED RESTING QUIETLY IN BED WITH EYES CLOSED.DOES AROUSE EASILY TO VERBAL STIMULI.ASSESSMENT COMPLETED .CL IN EASY REACH,BED IN LOW POSITION.WILL CONTINUE WITH CURRENT PLAN OF CARE.
[2020-01-06 08:00] VITALS: BP 130/81
[2020-01-06 21:38] VITALS: BP 126/82
--- NOTE | 2020-01-06 23:09 | NUR ---
PT WITH FAMILY IN ROOM, A&O, NO NEEDS NOTED, FLUIDS/CALL LIGHT WITHIN REACH
--- NOTE | 2020-01-07 03:43 | NUR ---
CPT IN BED ASLEEP, AROUSES EASILY, NO NEEDS NOTE, FLUIDS/CALL LIGHT WITHIN REACH, FALL PRECAUTIONS ARE IN PLACE WHEN WARRANTED
[2020-01-07 08:00] VITALS: BP 119/84
--- NOTE | 2020-01-07 11:22 | NUR ---
PATIENT DISCHARGING HOME TODAY WITH FAMILY. [facility] WILL PROVIDE THERAPY AT HOME. [facility] HAS DELIVERED ALL DME TO PATIENTS HOME( BED, WHEELCHAIR, WALKER, BEDSIDE COMMODE, SHOWER CHAIR, SLIDE BOARD, BED WEDGES) PATIENT SPOUSE TO CALL DR. DOWD TO GET ESTABLISHED FOR PCP, DR. NICHOLS 01/25/20 @ 10:45, DR. DON 02/02/20 @ 2:30.CAITLYN SIGNED, IMM SERVED AND EXPLAINED, ONE GIVEN TO PATIENT AND ONE FILED IN CHART. DISCHARGE INSTRUCTIONS FAXED [facility] AND [facility] PATIENT CM , FAX AUTH. #[id number], AND REVIEWED WITH PATIENT AND SPOUSE PER PRIMARY NURSE.
--- NOTE | 2020-01-07 12:25 | RHP ---
PATIENT: SERA SAMANO MEDICAL RECORD: [id number] ACCOUNT: [id number] LOCATION:[facility] [id number] : [id number] ADMISSION DATE: 12/22/19 REHABILITATION HISTORY AND PHYSICAL EXAMINATION POST ADMISSION PHYSICIAN EXAMINATION ADMITTING DIAGNOSIS: Multiple trauma. HISTORY OF PRESENT ILLNESS: The patient is a 44-year-old gentleman who was transferred from [facility] to [facility] on 12/16/2019. He was involved in a crush injury at work with a 2500 pound industrial oven fell on him crushing his pelvis. He was transported to [place] at [place]. He had a CT scan, which showed a right acetabular fracture and fracture of the anterior and posterior columns. He was transferred to [facility] for further evaluation and treatment. Upon arrival, he was transitioned from Ventimask to 3 liters of O2. He has been having some chest tenderness, right leg and left foot pain. He denies loss of consciousness. Once again, x-ray showed a comminuted mildly displaced right acetabular fracture involving both the posterior and anterior columns and the right lateral acetabular rim. He had posterior displacement of the right femoral head, right ischial fracture, right inferior pubic ramus fracture. He had an impacted fracture of the posterior aspects of the right femoral head. He had L3 through L5 compression fractures and retroperitoneal hemorrhage. He had T4-T5 inferior endplate irregularities and T5-T6 spinous process fractures. The patient had consults from neurology, hand surgery and orthopedic surgery during his stay. He had a right hip reduction completed and the patient was placed in traction. He was seen by the hand surgeon, had a thumb spica splint in place, but no intervention. He underwent ORIF of the right acetabular fracture on 11/16/2019, weightbearing. He is slide board transfer only, inability to use his left heel for transfers. Neurosurgery recommended spinal precautions until further imaging was done and MRI after surgery showed some ligamentous injuries and previously seen fractures, felt like he could come off spinal precautions, just wear a TLSO when out of bed. No intervention was needed. He was placed on Lovenox for DVT prophylaxis. He has been on postoperative antibiotics. He has been tolerating regular diet. He has had some shortness of breath. He has had a PE protocol showed no signs of embolus. He is doing well now on 2 liters via nasal cannula. He has been participating in therapy with TLSO when out of bed. He still complains of dizziness upon sitting up and shortness of breath with exertion. He requires mod assist with transfers, scooting and min assist with a draw sheet. He is supine to sit with min assist. He is unable to perform sit to stand due to nonweightbearing status now on his lower extremity. Prior to this hospitalization, he was living at home with his . He has 3 kids in 1 level. He was completely independent with ambulation and ADLs. COMORBIDITIES: Include a decrease in motion, physical functioning, risk for falls, electrolyte abnormalities, nutritional problems and impaired skin integrity. PAST MEDICAL HISTORY: Really none. SURGICAL HISTORY: Includes hand surgery and recent surgery. ALLERGIES: No known drug allergies. CURRENT MEDICATIONS: Include Celexa 10 mg daily, Lidoderm patch daily, he is on HISTORY AND PHYSICAL [id number] SERA SAMANO Lamictal 100 mg b.i.d., he is on Robaxin 1500 mg q.i.d., melatonin 6 mg at bedtime, Neurontin 600 mg t.i.d., Lovenox 50 mg subQ every 12 hours, Tylenol 975 every 6 hours p.r.n. and he is on OxyIR 5 mg every 4 hours and MiraLax 17 g in 8 ounces of water daily. HABITS: No alcohol or tobacco use. FAMILY HISTORY: Noncontributory. SOCIAL HISTORY: Once again, the patient hopes to return back home with his and 3 children. REVIEW OF SYSTEMS: GENERAL: Does complain of weakness and fatigue. HEENT: Denies cold, cough, or congestion. CARDIOVASCULAR: Denies any chest pain. PHYSICAL EXAMINATION: VITAL SIGNS: Stable, afebrile. GENERAL: A well-developed gentleman in no acute distress upon exam. HEENT: Normocephalic and atraumatic. Mucosa moist. NECK: Supple. No lymphadenopathy. LUNGS: Clear in upper davies with no wheezing, rhonchi or rales. HEART: Regular rate and rhythm. No murmurs, rubs or gallops. ABDOMEN: Soft, benign and nondistended. Positive bowel sounds times 4. EXTREMITIES: Does notice to have previous surgical scars to his acetabular region and his hip area. NEUROLOGIC: He is mainly intact. ASSESSMENT: This is a 44-year-old gentleman admitted to the rehab with a working diagnosis of multiple trauma. The patient has potential to make improvement. We instituted the following multidisciplinary therapies include, but not limited to physical, occupational, respiratory, speech, nutritional services, prosthetics and orthotics. Given his complex medical condition and risks for more complications, rehabilitation services cannot be provided at a low level of care such as long-term facility. PLAN: 1. Admit to [facility] for intensive inpatient therapy to include the following disciplines; A. Physical therapy to improve gait, all transfer skills and bed mobility to a modified independent level. B. Occupational therapy to improve activities of daily living. C. Case management to assist with discharge planning and placement options. D. Nutrition to assist with nutritional needs. E. Rehabilitation nursing to assist in monitoring the patient's underlying medical conditions and to assist with any type of bowel or bladder management. 2. The patient's current medication and medical care will be continued. 3. The patient will be placed on standard fall precautions. 4. The patient's estimated length of stay is approximately 7-10 days. 5. We will discuss this patient during care team staff meeting this week. We will continue on Lovenox for prophylaxis and I am going to see again in the a.m. TRANSINT:[id number] Voice Confirmation ID: [id number] DOCUMENT ID: [id number] HISTORY AND PHYSICAL [id number] SERA SAMANO notes whether there has been none or any medical/functional change since admission: - No change since prescreen. YAMILETH attests patient continues to be appropriate for IRF: - Continues to be appropriate. ELIO EVANS MD at 1225 CC: [id number] DICTATION DATE: 12/23/1905 LICENSED PROFESSIONAL COUNSELOR: 12/23/19 0927 ADM IN [facility] [address] [place] [address]
== END 2020-01-07 12:50 | disposition home health service (06) | DRG 561 ==
LOC: D.REHAB 15:29
PROVIDERS: ADMIT Emergency Medicine; ATTEND Emergency Medicine
DX: S32.431D Displaced fracture of anterior column [iliopubic] of right acetabulum, subsequent encounter for fracture with routine healing (principal); S32.441D Displaced fracture of posterior column [ilioischial] of right acetabulum, subsequent encounter for fracture with routine healing; S32.601D Unspecified fracture of right ischium, subsequent encounter for fracture with routine healing; S32.501D Unspecified fracture of right pubis, subsequent encounter for fracture with routine healing; W23.0XXD Caught, crushed, jammed, or pinched between moving objects, subsequent encounter; S32.039D Unspecified fracture of third lumbar vertebra, subsequent encounter for fracture with routine healing; S32.049D Unspecified fracture of fourth lumbar vertebra, subsequent encounter for fracture with routine healing; S32.059D Unspecified fracture of fifth lumbar vertebra, subsequent encounter for fracture with routine healing; S22.059D Unspecified fracture of T5-T6 vertebra, subsequent encounter for fracture with routine healing; E87.8 Other disorders of electrolyte and fluid balance, not elsewhere classified; R42 Dizziness and giddiness; R06.02 Shortness of breath

== ENCOUNTER → 2020-02-02 10:38 | Outpatient (CLI) | payer OTHER ==
[2019-12-23 13:55] VITALS: BMI 27.7
[~2020-02-02 10:38] MED LIST: ACETAMINOPHEN325 MG PO; CELEXA10 MG PO; LAMICTAL100 MG PO; LIDODERM 5 %1 PATCH TRANSDERM; LOVENOX60 MG/0.6 SC; MELATONIN 3 MG1 TAB PO; METHOCARBAMOL500 MG PO; NEURONTIN600 MG PO; OXYCODONE HCL5 M1 PO; oxyCODONE IR PO
== END | disposition home or self-care (01) ==
LOC: D.RAD 10:38
PROVIDERS: ATTEND Neurological Surgery
DX: S22.000A Wedge compression fracture of unspecified thoracic vertebra, initial encounter for closed fracture (principal)

== ENCOUNTER → 2020-04-20 19:22 | Outpatient (CLI) | payer BC ==
[2019-12-23 13:55] VITALS: BMI 27.7
[2020-04-20 19:50] LABS: ALBUMIN 4.4 g/dL (3.4-5.0); ALKALINE PHOSPHATASE 140 U/L (30-120); ALT (SGPT) 15 U/L (10-68); BILIRUBIN - TOTAL 0.33 mg/dL (0.2-1.3); CALC OSMOLALITY 276 mosm/kg (275-300); CALCIUM 9.2 mg/dL (8.5-10.1); CARBON DIOXIDE 27.2 mmol/L (21.0-32.0); CHLORIDE - SERUM 105 mmol/L (98-107); CHOL - HDL RATIO 3.1 ratio (2.3-4.9); CHOLESTEROL, TOTAL 153 mg/dL (0-200); CREATININE - SERUM 0.8 mg/dL (0.6-1.3); GLUCOSE 87 mg/dL (74-106); HDL CHOLESTEROL 50 mg/dL (32-96); LDL CHOLESTEROL 92 mg/dL (0-100); LDL-HDL RATIO 1.8 ratio (1.5-3.5); POTASSIUM - SERUM 4.5 mmol/L (3.5-5.1); PROTEIN - SERUM 7.9 g/dL (6.4-8.2); SODIUM 140 mmol/L (136-145); TRIGLYCERIDE 57 mg/dL (30-200); UREA NITROGEN 10 mg/dL (7-18); eGFR NON AFRICAN AMERICAN > 90 mL/min (90-120)
== END | disposition home or self-care (01) ==
LOC: D.LABREF 19:22
PROVIDERS: ATTEND Legal Medicine
DX: I10 Essential (primary) hypertension (principal)